=== PATIENT | male | born 1965 | race American Indian/Alaskan Native ===

== ENCOUNTER 2016-06-04 18:18 | Emergency (ER) | payer SELFPAY ==
[2016-06-04 18:27] VITALS: BP 140/96
--- NOTE | 2016-06-04 19:58 | Emergency Department Report ---
HPI - General Chief Complaint: Earache Time Seen by Provider: 06/04/16 19:42 - HPI HPI: Patient here reports right ear ache with sore throat feels like pain is radiating from his radiodensities throat. He reports chills. Sore throat and earache is 6 out of 10 and achy. He said this started on Thursday it's getting worse. Reports some nasal congestion and runny nose. Denies any cough, shortness of breath, nausea or vomiting. He said he took [id number] pain medication but it doesn't help. Denies any trauma to right ear. Denies any drainage from right ear. Denies any drooling, difficulty breathing or swallowing. ED Past Medical Hx - Past Medical History Previous Medical History?: Yes Hx GERD: Yes - Surgical History Past Surgical History?: No - Family History Family history: hypertension - Social History Smoking Status: Never Smoker Substance Use Type: None - Medications Home Medications: Home Medications Medication Instructions Recorded Confirmed Last Taken Type Meclizine HCl [Antivert] 25 mg PO TID PRN #20 tablet 06/23/14 Unknown Rx Amoxicillin [Trimox CAP] 500 mg PO Q8H #30 capsule 01/16/15 Unknown Rx traMADol [Ultram 50 MG tab] 50 mg PO Q6HR PRN #20 tablet 01/16/15 Unknown Rx Amoxicillin [Amoxicillin TAB] 875 mg PO BID #20 tablet 06/04/16 Unknown Rx Cetirizine HCl [ZyrTEC] 10 mg PO QDAY #14 capsule 06/04/16 Unknown Rx Fluticasone [Flonase] 1 spray NS QDAY #1 bottle 06/04/16 Unknown Rx Ibuprofen [Motrin] 600 mg PO Q8H PRN #15 tablet 06/04/16 Unknown Rx ED Review of Systems ROS: Stated complaint: POSS EAR INFECTION/SORE THROAT/HEADACHE/DIZZINESS Other details as noted in HPI Comment: All other systems reviewed and negative Constitutional: chills. denies: malaise Eyes: denies: eye pain, eye discharge ENT: ear pain, throat pain, congestion. denies: dental pain Respiratory: no symptoms reported Cardiovascular: denies: chest pain, palpitations, edema, syncope Gastrointestinal: denies: abdominal pain, nausea, vomiting Musculoskeletal: denies: back pain, arthralgia Skin: denies: rash Neurological: denies: headache, weakness Physical Exam - Physical Exam Vital Signs: Vital Signs 06/04/16 18:22 Temperature 98.5 F Pulse Rate 59 L Respiratory 16 Rate Blood Pressure 140/96 O2 Sat by Pulse 100 Oximetry General: This is a 51-year-old male well-nourished well-developed nontoxic in appearance. Physical Exam: Head: Normocephalic atraumatic Mouth: Moist, no pharyngeal exudate or erythema. Uvula is midline and oral airway is patent. No facial swelling. No peritonsillar abscesses. Nose: Congested with erythema to mucosa. Clear Drainage. Maxillary and frontal sinuses nontender to palpate Neck: Supple, no C-spine tenderness, no tracheal deviation. Nontender to palpate. no adenopathy Ears: Bilateral TMs congested with Rt TM erythema. Bilateral EAC without any redness swelling or drainage. Abdomen: Soft, nontender to palpate in all quadrants, normal bowel sounds in all quadrant and negative CVA tenderness bilaterally. Eyes: Bilateral pupils equal and reactive to light, bilateral EOM intact. Bilateral sclera and conjunctiva without injection. Normal accommodation. Lungs: Cleart to auscultate bilaterally no rhonchi wheezes or rales. Normal work of breathing extremity; No CCE. +2 pulses. No neurovascular compromise Cardiovascular: S1-S2, regular rate rhythm. No murmurs. Skin: clean Dry and intact no rash no lesions Psych: Normal mood and behavior ED Course Vital Signs 06/04/16 18:22 Temperature 98.5 F Pulse Rate 59 L Respiratory 16 Rate Blood Pressure 140/96 O2 Sat by Pulse 100 Oximetry - Reevaluation(s) Reevaluation #1: 06/04/16 20:34 stable throughout ED course: ED Medical Decision Making - Medical Decision Making ED course: Patient here diagnosed with right otitis media and upper respiratory tract infection. Sent diagnosis and treatment plan and he was understanding. Patient given prescription for Zyrtec, Flonase, motrin and amoxicillin and to follow-up with his primary care physician in 2 days and if he does not have one to follow-up with outside Medical Center. Critical care attestation.: If time is entered above; I have spent that time in minutes in the direct care of this critically ill patient, excluding procedure time. ED Disposition Clinical Impression: Otalgia of right ear Otitis media, right Qualifiers: Otitis media type: unspecified Chronicity: unspecified Qualified Code(s): H66.91 - Otitis media, unspecified, right ear Acute pharyngitis Qualifiers: Pharyngitis/tonsillitis etiology: unspecified etiology Qualified Code(s): J02.9 - Acute pharyngitis, unspecified Upper respiratory tract infection Qualifiers: URI type: unspecified URI Qualified Code(s): J06.9 - Acute upper respiratory infection, unspecified Disposition: DISCHARGED TO HOME OR SELFCARE Is pt being admited?: No Does the pt Need Aspirin: No Condition: Stable Instructions: Upper Respiratory Infection (ED), Otitis Media (ED), Earache (ED) , Pharyngitis (ED) Prescriptions: Amoxicillin [Amoxicillin TAB] 875 mg PO BID #20 tablet Cetirizine HCl [ZyrTEC] 10 mg PO QDAY #14 capsule Fluticasone [Flonase] 1 spray NS QDAY #1 bottle Ibuprofen [Motrin] 600 mg PO Q8H PRN #15 tablet PRN Reason: Pain Referrals: PRIMARY CARE [Primary Care Provider] - 06/06/[address] [facility] [Outside] - 06/06/16 Forms: Work/School Release Form(ED)
== END 2016-06-04 20:50 | disposition home or self-care (01) ==
LOC: ED 18:18
DX: H66.91 Otitis media, unspecified, right ear (principal); J02.9 Acute pharyngitis, unspecified; J06.9 Acute upper respiratory infection, unspecified; H92.01 Otalgia, right ear; K21.9 Gastro-esophageal reflux disease without esophagitis
CPT/HCPCS: 99282